=== PATIENT | female | born 2000 | race Two or more races ===

== ENCOUNTER 2018-03-17 16:51 | Emergency (ER) | payer SELFPAY ==
[2018-03-17 18:06] LABS: URINE HCG POC HCG POSITIVE (Negative)
[2018-03-17 18:13] LABS: BILIRUBIN,URINE NEGATIVE (NEG); CLARITY,URINE CLEAR; COLOR,URINE YELLOW; GLUCOSE,URINE NEGATIVE (NEG); NITRITE,URINE NEGATIVE (NEG); PH,URINE 6.5; PROTEIN,URINE NEGATIVE (NEG-TRACE); UROBILINOGEN,URINE 0.2 mg/dL (0.2 mg/dL)
[2018-03-17 18:29] LABS: BACTERIA,URINE FEW /HPF (0-FEW); RBC,URINE 0 /HPF (0-2); SQUAMOUS EPITHELIAL CELL,UR FEW /LPF; WBC,URINE 0 /HPF (0-4)
[2018-03-17 18:31] LABS: ADD MAN DIFF? NO
[2018-03-17 18:33] LABS: BASO % 0 % (0-3); EOS % 0 % (0-3); HEMATOCRIT 33.8 % (36.0-47.0); HEMOGLOBIN 11.7 g/dL (12.0-15.5); LYMPH # 2.6 x10^3/uL (1.0-4.8); LYMPH % 26 % (24-48); MEAN CORPUSCULAR HEMOGLOBIN 33 pg (25-35); MEAN CORPUSCULAR HGB CONC 35 g/dL (31-37); MEAN CORPUSCULAR VOLUME 96 fL (79-100); MONO % 10 % (0-9); NEUT # 6.3 x10^3uL (1.8-7.7); NEUT % 63 % (31-73); PLATELET COUNT 205 x10^3/uL (140-400); RED BLOOD COUNT 3.51 x10^6/uL (3.50-5.40); RED CELL DISTRIBUTION WIDTH 13.5 % (11.5-14.5); WHITE BLOOD COUNT 9.9 x10^3/uL (4.0-11.0)
== END 2018-03-17 20:07 | disposition home or self-care (01) ==
LOC: ER 16:51
DX: O20.0 Threatened abortion (principal); Z3A.08 8 weeks gestation of pregnancy
CPT/HCPCS: 36415; 76801; 76817; 81001; 81025; 84702; 85025; 86850; 86900; 86901; 99285-25